=== PATIENT | female | born 1980 | race Caucasian/White ===

== ENCOUNTER 2022-12-22 16:55 | Outpatient (CLI) | payer OTHER, SELFPAY ==
--- NOTE | 2022-12-22 17:00 | CRLHL7_ITS ---
For Patients: As a result of the Century Cures Act, medical imaging exams and procedure reports are released immediately into your electronic medical record. You may view this report before your referring provider. If you have questions, please contact your health care provider. CLINICAL HISTORY: Abnormal uterine TECHNIQUE: 2D don scale and color Doppler images were acquired of the pelvis using a transvaginal approach. FINDINGS: On transvaginal imaging, the myometrium has a normal uniform echotexture. The uterus measures 9.2 x 4.7 x 5.7 cm. The endometrial lining measures 7.5 mm in thickness. The left ovary measures 3.5 x 2.3 x 2.6 cm in size and the right ovary measures 5.6 x 3.0 x 4.0 cm. The ovaries demonstrate normal arterial and venous blood flow on color Doppler analysis. Pelvic free-fluid noted measuring 14.2 cc. Simple anechoic right ovarian cyst is noted measuring 5.1 x 2.6 x 3.5 cm. IMPRESSION: Endometrial thickness 7.5 millimeters. No endometrial fluid or uterine fibroid. 5.1 cm simple right ovarian cyst. Moderate pelvic free fluid. Dictated by Ronaldo Huang MD @ 12/23/2022 9:23:40 AM (Electronically Signed)
== END 2022-12-22 16:56 | disposition home or self-care (01) ==
LOC: US 16:56
PROVIDERS: PCP Nurse Practitioner Family; Visit Provider Obstetrics & Gynecology
DX: R94.8 Abnormal results of function studies of other organs and systems (principal); R93.89 Abnormal findings on diagnostic imaging of other specified body structures; N83.201 Unspecified ovarian cyst, right side
CPT/HCPCS: 76830; 84439; 84443; 87086

== ENCOUNTER 2023-02-18 10:53 | Outpatient (CLI) | payer OTHER, SELFPAY ==
--- NOTE | 2023-02-18 11:00 | CRLHL7_ITS ---
For Patients: As a result of the Century Cures Act, medical imaging exams and procedure reports are released immediately into your electronic medical record. You may view this report before your referring provider. If you have questions, please contact your health care provider. INDICATION: FOLLOW UP RIGHT OV CYST COMPARISON: 12/22/2022 TECHNIQUE: 2D don scale and color Doppler images were acquired of the pelvis using a transabdominal and transvaginal approach. FINDINGS: Sonographic images demonstrate a normal size and smooth outer contour of the uterus. Uterus measures 9.1 cm in length by 4.5 cm in AP diameter by 5.3 cm in transverse dimension. The myometrium has a normal uniform echotexture. The endometrial lining measures 7 mm in composite thickness. Focal area of increased echogenicity associated with the fundal endometrium measuring 7 x 6 x 8 millimeters. The right ovary measures 3.6 x 1.5 x 2.0 cm in size and the left ovary measures 3.1 x 1.3 x 1.8 cm. The ovaries demonstrate normal arterial and venous blood flow on color Doppler analysis. There are no suspicious fluid collections within the cul-de-sac. IMPRESSION: Resolution of previously noted right ovarian cyst. There is a small cystic area within the right ovary measuring approximately 1.5 cm. No excess pelvic free fluid. Endometrial thickness 7 millimeters. Possible endometrial polyp measuring 8 millimeters. Dictated by Ronaldo Huang MD @ 02/18/2023 12:35:31 PM (Electronically Signed)
== END 2023-02-18 10:54 | disposition home or self-care (01) ==
LOC: US 10:54
PROVIDERS: PCP Nurse Practitioner Family; Visit Provider Obstetrics & Gynecology
DX: N83.201 Unspecified ovarian cyst, right side (principal); R93.89 Abnormal findings on diagnostic imaging of other specified body structures
CPT/HCPCS: 76830; 76856

== ENCOUNTER 2023-03-12 08:41 | Outpatient (CLI) | payer OTHER, SELFPAY | END 2023-03-12 08:42 | disposition home or self-care (01) | LOC: NFLDREF 03-16 22:40 | PROVIDERS: PCP Nurse Practitioner Family; Referring Provider Nurse Practitioner Family; Visit Provider Obstetrics & Gynecology | DX: Z34.90 Encounter for supervision of normal pregnancy, unspecified, unspecified trimester (principal) | CPT/HCPCS: 84702 ==

== ENCOUNTER 2023-03-14 12:22 | Outpatient (CLI) | payer OTHER, SELFPAY ==
[2023-03-14 13:13] LABS: HCG Quantitative* 101.52 mIU/mL
== END 2023-03-14 12:23 | disposition home or self-care (01) ==
LOC: US 12:23
PROVIDERS: Obstetrics & Gynecology; PCP Nurse Practitioner Family; Visit Provider Physician Assistant
DX: Z32.01 Encounter for pregnancy test, result positive (principal)
CPT/HCPCS: 36415; 84702

== ENCOUNTER 2023-03-22 11:56 | Outpatient (CLI) | payer OTHER, SELFPAY | END 2023-03-22 11:57 | disposition home or self-care (01) | LOC: NFLDREF 11:58 | PROVIDERS: PCP Nurse Practitioner Family; Visit Provider Obstetrics & Gynecology | DX: O46.91 Antepartum hemorrhage, unspecified, first trimester (principal) | CPT/HCPCS: 84702 ==

== ENCOUNTER 2023-03-24 14:00 | Outpatient (CLI) | payer OTHER, SELFPAY | END 2023-03-24 14:01 | disposition home or self-care (01) | LOC: NFLDREF 03-27 22:03 | PROVIDERS: PCP Nurse Practitioner Family; Referring Provider Nurse Practitioner Family; Visit Provider Obstetrics & Gynecology | DX: O20.9 Hemorrhage in early pregnancy, unspecified (principal) | CPT/HCPCS: 84702 ==

== ENCOUNTER 2023-04-01 09:20 | Outpatient (CLI) | payer OTHER, SELFPAY | END 2023-04-01 09:21 | disposition home or self-care (01) | LOC: NFLDREF 04-05 06:21 | PROVIDERS: PCP Nurse Practitioner Family; Referring Provider Nurse Practitioner Family; Visit Provider Obstetrics & Gynecology | DX: O03.9 Complete or unspecified spontaneous abortion without complication (principal) | CPT/HCPCS: 84702 ==

== ENCOUNTER 2023-04-29 09:29 | Outpatient (CLI) | payer OTHER, SELFPAY ==
--- NOTE | 2023-04-29 09:45 | CRLHL7_ITS ---
For Patients: As a result of the Cures Act, medical imaging exams and procedure reports are released immediately into your electronic medical record. You may view this report before your referring provider. If you have questions, please contact your health care provider. BILATERAL SCREENING MAMMOGRAM WITH COMPUTER-AIDED DETECTION AND TOMOSYNTHESIS TECHNIQUE: CC and MLO views were obtained. These mammographic images have been obtained using full-field digital technique. These mammographic images were interpreted with the benefit of computer-aided detection. Breast tomosynthesis was used in this interpretation. COMPARISON FILM: 03/31/22. FINDINGS: The breasts are heterogeneously dense, which may obscure small masses. IMPRESSION: There is no radiographic evidence for malignancy. ASSESSMENT: BI-RADS Category 1: Negative RECOMMENDATION: Routine screening mammogram in 1 year. A lay language report of this examination will be provided to the patient. MAKAYLA KNIGHT M.D. Diagnostic/Nuclear Medicine Radiologist [email or web address] Transcribed: 04/29/2023, 3:[address]/Dictated by: Makayla Knight MD @ 04/29/2023 12:02:00 PM (Electronically Signed)
== END 2023-04-29 09:30 | disposition home or self-care (01) ==
PROVIDERS: PCP Nurse Practitioner Family; Visit Provider Obstetrics & Gynecology
DX: Z12.31 Encounter for screening mammogram for malignant neoplasm of breast (principal); R92.2 Inconclusive mammogram
CPT/HCPCS: 77063; 77067

== ENCOUNTER 2024-04-19 09:01 | Outpatient (CLI) | payer OTHER, SELFPAY ==
--- NOTE | 2024-04-19 09:00 | CRLHL7_ITS ---
For Patients: As a result of the Century Cures Act, medical imaging exams and procedure reports are released immediately into your electronic medical record. You may view this report before your referring provider. If you have questions, please contact your health care provider. Indication: Chronic sinusitis. Technique: Noncontrast axial CT of the paranasal sinuses with coronal reformats are provided. No comparisons. Findings: There is a 4 millimeter mucous retention cyst polyp in both maxillary sinuses. There is approximate 2 millimeter thick mucosal thickening within the floor the left maxillary sinus. The right ostiomeatal complex is patent with mild narrowing of the left ostiomeatal complex due to adjacent mucosal thickening. Mild opacified left posterior ethmoid air cells. The remainder of the visualized paranasal sinuses are clear. The visualized intraorbital contents appear within normal limits. Impression: 1. Mild inflammatory changes within the left maxillary ethmoid sinuses with mild narrowing of the left ostiomeatal complex due to adjacent mucosal thickening. 2. Tiny mucous retention cyst or polyp in the right maxillary sinus. Please note that all CT scans at this facility use dose modulation, iterative reconstruction, and/or weight-based dosing when appropriate to reduce radiation dose to as low as reasonably achievable. Dictated by Kj Cardenas MD @ 04/21/2024 11:18:57 AM (Electronically Signed)
== END 2024-04-19 09:02 | disposition home or self-care (01) ==
LOC: CT 09:01
PROVIDERS: PCP Nurse Practitioner Family; Visit Provider Otolaryngology
DX: J32.9 Chronic sinusitis, unspecified (principal); J32.0 Chronic maxillary sinusitis; J32.2 Chronic ethmoidal sinusitis
CPT/HCPCS: 70486

== ENCOUNTER 2024-05-01 11:28 | Outpatient (CLI) | payer OTHER, SELFPAY ==
--- NOTE | 2024-05-01 11:30 | CRLHL7_ITS ---
For Patients: As a result of the Century Cures Act, medical imaging exams and procedure reports are released immediately into your electronic medical record. You may view this report before your referring provider. If you have questions, please contact your health care provider. BILATERAL SCREENING MAMMOGRAM WITH COMPUTER-AIDED DETECTION AND TOMOSYNTHESIS TECHNIQUE: CC and MLO views were obtained. These mammographic images have been obtained using full-field digital technique. These mammographic images were interpreted with the benefit of computer-aided detection. Breast Tomosynthesis was used in this interpretation. COMPARISON FILM: 04/29/23, 03/31/22. FINDINGS: The breasts are heterogeneously dense, which may obscure small masses. IMPRESSION: There is no radiographic evidence for malignancy. ASSESSMENT: BI-RADS Category 1: Negative RECOMMENDATION: Routine screening mammogram in 1 year. A lay language report of this examination will be provided to the patient. Ronaldo Huang M.D. Diagnostic Radiologist [email or web address] [place]/Dictated by: Ronaldo Huang MD @ 05/03/2024 11:05:00 AM (Electronically Signed)
== END 2024-05-01 11:29 | disposition home or self-care (01) ==
PROVIDERS: PCP Nurse Practitioner Family; Visit Provider Nurse Practitioner Family
DX: Z12.31 Encounter for screening mammogram for malignant neoplasm of breast (principal); R92.333 Mammographic heterogeneous density, bilateral breasts
CPT/HCPCS: 77063; 77067

== ENCOUNTER 2024-06-26 13:45 | Outpatient (CLI) | payer OTHER, SELFPAY | END 2024-06-26 13:46 | disposition home or self-care (01) | PROVIDERS: PCP Nurse Practitioner Family; Visit Provider Nurse Practitioner Family | DX: M79.10 Myalgia, unspecified site (principal); R53.83 Other fatigue | CPT/HCPCS: 80053; 82306; 82550; 84443; 85025; 85651; 86140 ==

== ENCOUNTER 2024-08-04 11:23 | Day surgery (SDC) | payer OTHER, SELFPAY ==
[2024-08-04] VITALS (12 sets, daily range): BP systolic 109–142; BP diastolic 65–85; PULSE 56–87; RESP 14–20; TEMP 36.5–36.8; O2SAT 97–100; BMI 22.6
[2024-08-04 11:44] LABS: Ur HCG Qualitative* Negative (Negative)
[2024-08-04] MEDS: SODIUM CHLORIDE 0.9 % (FLUSH) 10 ML SYRINGE IVF (12:05)
[2024-08-04] MEDS: OXYMETAZOLINE (AFRIN) SOAK 1 EACH TOPICAL (12:05)
[2024-08-04] MEDS: LACTATED RINGERS 1000 ML 1,000 ML 100 ML IV (12:05)
[2024-08-04] MEDS: COCAINE HCL 4 % 4 ML SOLUTION NOSTRIL-B (13:19)
[2024-08-04] MEDS: BUPIVACAINE 0.5%/EPINEPHRINE 0.9 MG (30.9 ML) INJECTION (13:19)
[2024-08-04] MEDS: AYR SALINE NASAL GEL 1 APPLIC NOSTRIL-B (13:30)
[2024-08-04] MEDS: MUPIROCIN 1 GM PACKET 1 APPLIC TOPICAL (13:38)
--- NOTE | 2024-08-04 13:53 | W.ANESCHARGE ---
Anesthesia Charges Start Date/Time Anesthesia Start Date: 08/04/24 Anesthesia Start Time: 12:58 Stop Date/Time Anesthesia Stop Date: 08/04/24 Anesthesia Stop Time: 13:58 Coding CPT Codes CPT Codes: ANESTH NOSE/SINUS SURGERY - 04456 ([id number]) P2 - PATIENT W/MILD SYST DISEASE, QK - SMELTER CHARGER 2-4 CNCRNT ANES PROC, QX - SAFE DEPOSIT ATTENDANT SVC W/ MD MED DIRECTION
--- NOTE | 2024-08-04 14:04 | W.ANESCHARGE ---
Anesthesia Charges Start Date/Time Anesthesia Start Date: 08/04/24 Anesthesia Start Time: 12:58 Stop Date/Time Anesthesia Stop Date: 08/04/24 Anesthesia Stop Time: 13:58 Coding CPT Codes CPT Codes: ANESTH NOSE/SINUS SURGERY - 39092 ([id number]) P2 - PATIENT W/MILD SYST DISEASE, QK - NUCLEAR PHYSICIST 2-4 CNCRNT ANES PROC, QX - OUTSIDE SALES CONSULTANT SVC W/ MD MED DIRECTION
--- NOTE | 2024-08-04 14:31 | W.PM.ENTPROC ---
Procedure Note Date of procedure: 08/04/24 Procedure: Preop diagnosis Chronic left ethmoid sinusitis, deviated septum, bilateral inferior turbinate hypertrophy Postop diagnosis same Procedure endoscopic image guided left complete ethmoidectomy, nasal septoplasty, submucous partial resection inferior turbinates bilateral Under general trach anesthesia patient was prepped and draped in the usual fashion. The image guidance system was registered with good accuracy and I verified this myself. Image guidance and 0 degree endoscopy were used throughout the procedure. The nose was decongested and injected. A right hemitransfixion incision was made. Left anterior and posterior tunnels were created. A vertical incision made through the cartilage and a right posterior tunnel created. The posterior septal impactions were resected and large piece of the bone was trimmed returned to intraseptal space. The hemitransfixion was closed with 2 4-0 chromic sutures A stab incision was made in the anterior head of the right inferior turbinate a tunnel created with a Koko dissector. A conservative anterior submucous resection was performed. The Coblation Wand was used for hemostasis and to cauterize intramurally along the inferior 10%. This was repeated on the left side in identical fashion The ethmoid bulla was taken down dissection carried out in anterior-posterior direction removing a moderate amount of polypoid material projects including what was seen on the scan. This was verified by image guidance. Silastic stents were secured with 3-0 nylon. Merocel packing coated in Bactroban was placed in the middle meatus on each side. The patient procedure well was taken recovery in satisfactory condition. Blood loss was less than 20 mL. Surgeon: Jesus Pan MD
[2024-08-04] MEDS: ACETAMINOPHEN 500 MG TABLET PO (14:42)
[2024-08-04] MEDS: IBUPROFEN 400 MG TABLET PO (14:45)
[2024-08-04] MEDS: OXYCODONE 5 MG TABLET PO (15:11)
== END 2024-08-04 15:56 | disposition home or self-care (01) ==
PROVIDERS: Anesthesiology; PCP Nurse Practitioner Family; Visit Provider Otolaryngology
PROC: (CPT 31231; principal; 2024-08-04 12:45)
DX: J32.2 Chronic ethmoidal sinusitis (principal); J34.2 Deviated nasal septum; J34.3 Hypertrophy of nasal turbinates; J33.9 Nasal polyp, unspecified
CPT/HCPCS: 31255; 30520; 30140; 00160; 81025; 88305; A9270; J0330; J1100; J1335; J2250; J2405; J2704; J3010; J7120